=== PATIENT | female | born 2000 | race African-American/Black ===

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

== ENCOUNTER 2022-01-13 12:51 | Emergency (ER) | payer OTHER, SELFPAY ==
[2022-01-13 23:55] LABS: SARS-CoV-2 PCR by NAA Not Detected (NotDetected)
== END 2022-01-13 13:16 | disposition home or self-care (01) ==
LOC: ERS 12:51
DX: J06.9 Acute upper respiratory infection, unspecified (principal); Z20.822 Contact with and (suspected) exposure to COVID-19
CPT/HCPCS: 99283; U0003; U0005

== ENCOUNTER 2024-01-17 21:20 | Emergency (ER) | payer OTHER, SELFPAY ==
[2024-01-17] MEDS ORDERED: Acetaminophen 500 MG TAB ONE (22:33)
[2024-01-17] MEDS ORDERED: Ondansetron ODT 4 MG TAB ONE (22:34)
[2024-01-17 22:42] LABS: Influenza A by NAA Not Detected (NotDetected); Influenza B by NAA Not Detected (NotDetected); SARS-CoV-2 NAA Rapid Test Not Detected (NotDetected)
== END 2024-01-17 23:50 | disposition home or self-care (01) ==
LOC: ERS 21:20
DX: R51.9 Headache, unspecified (principal); R11.2 Nausea with vomiting, unspecified
CPT/HCPCS: 87081; 87430; 99284; Q0162